=== PATIENT | female | born 1955 | race Two or more races ===

== ENCOUNTER → 2021-06-30 | Day surgery (SDC) | payer MEDICARE, MEDICAID ==
[~2021-06-30] VITALS: Ht 165.1 cm; Wt 117.9 kg
[~2021-06-30] MED LIST: ACET-2708 MT; CEFAZOLIN SODIUM 1000MG/VIAL ONE; DEXAMETHASONE 4MG/ML 1ML VIAL ONE; DEXT 5%/0.45% NACL KCL 20MEQ/L 1,000 ML IV SCH; DIPHENHYDRAMINE 50MG/ML VIAL ONE; FENTANYL CITRATE/PF 50MCG/ML 2ML VIAL ONE; GABA-290 MT; IBUP-2030 MT; KETOROLAC 30MG/ML VIAL IM NR; KETOROLAC 30MG/ML VIAL IV NR; KETOROLAC 60MG/2ML VIAL IM ONE; LIDOCAINE HCL 1% 10 MG/ML 10ML VIAL ONE; MIDAZOLAM HCL 2 MG/2 ML VIAL ONE; ONDANSETRON HCL 4MG/2ML INJ IV PRN; ONDANSETRON HCL 4MG/2ML INJ ONE; PROPOFOL 200MG/20ML VIAL IV ONE
[2021-06-30 10:44] LABS: BASOPHILS % 0.6 % (0.0-2.0); EOSINOPHILS % 3.3 % (0.0-5.0); HEMATOCRIT. 41.8 % (36.0-48.0); HEMOGLOBIN. 14.1 g/dL (12.0-16.0); MEAN CORPUSCULAR HEMOGLOBIN 30.2 pg (28.0-32.0); MEAN CORPUSCULAR VOLUME 89.8 fL (81.0-99.0); MEAN PLATELET VOLUME 7.9 fl (7.4-10.4); NEUTROPHILS % 62.1 % (40.0-76.0); PLATELET 228 x1000/uL (130-400); RED BLOOD CELL COUNT 4.66 mill/uL (4.2-5.4); RED CELL DISTRIBUTION WIDTH 14.2 % (11.6-14.6)
[2021-06-30 10:49] LABS: CHLORIDE 105 mEq/L (98-107)
[2021-06-30] MEDS: FENTANYL CITRATE/PF 50MCG/ML 2ML VIAL IV PRN ×4 (13:22→13:55)
[2021-06-30 13:55] VITALS: BP 152/88
== END | disposition home or self-care (01) ==
LOC: OR 09:42
PROVIDERS: ATTEND Specialist
DX: N95.0 Postmenopausal bleeding (principal); R32 Unspecified urinary incontinence; N84.0 Polyp of corpus uteri; R42 Dizziness and giddiness; K21.9 Gastro-esophageal reflux disease without esophagitis; M19.90 Unspecified osteoarthritis, unspecified site; G47.30 Sleep apnea, unspecified; Z79.899 Other long term (current) drug therapy; Z98.890 Other specified postprocedural states; Z88.8 Allergy status to other drugs, medicaments and biological substances; Z80.3 Family history of malignant neoplasm of breast; Z82.49 Family history of ischemic heart disease and other diseases of the circulatory system; Z83.3 Family history of diabetes mellitus; Z20.822 Contact with and (suspected) exposure to COVID-19
CPT/HCPCS: 36415; 58558; 80048; 85025; 87426; 88305; 93005; J0690; J1100; J1200; J2250; J2405; J2704; J3010; J3490; J1885